=== PATIENT | female | born 1975 | race Caucasian/White ===

== ENCOUNTER 2019-04-03 08:30 | Emergency (ER) | payer OTHER ==
[2019-04-03 08:35] VITALS: BP 120/73; PULSE 110; TEMP 101; BMI 35.9
[2019-04-03] MEDS ORDERED: IBUPROFEN 100 MG/5 ML UNIT DOSE CUPS PO ONE (08:45)
[2019-04-03] MEDS ORDERED: DEXAMETHASONE SOD PHOSPHATE 10 MG/1 ML VIAL IM ONE (08:45)
[2019-04-03] MEDS ORDERED: DEXAMETHASONE SOD PHOSPHATE 10 MG/1 ML VIAL ONE (08:46)
[2019-04-03] MEDS ORDERED: IBUPROFEN 100 MG/5 ML UNIT DOSE CUPS ONE (08:46)
--- NOTE | 2019-04-03 08:51 | PDOC ---
History of Present Illness - General Chief Complaint: Sore Throat Stated Complaint: SORE THROAT Time Seen by Provider: 04/03/19 08:43 History Source: Patient - History of Present Illness Timing/Duration: reports: other Past History - Past Medical History Allergies/Adverse Reactions: Allergies Allergy/AdvReac Type Severity Reaction Status Date / Time No Known Drug Allergies Allergy Verified 04/03/19 08:31 walnuts Allergy Severe anaphylaxis Uncoded 04/03/19 08:31 Home Medications: Ambulatory Orders Acetaminophen [Tylenol .Regular Strength -] 650 mg PO Q6H PRN #0 tablet Ibuprofen Oral Suspension [Motrin Oral Suspension -] 800 mg PO Q6H #140 ml 04/03 Methylprednisolone [Medrol Dose Edwin] 4 mg PO ASDIR #21 tablet 04/03/19 Anemia: Yes COPD: No HTN: No (H/O PRIOR TO BARIATRIC SX.) - Surgical History Abdominal Surgery: Yes Cholecystectomy: Yes Gastric Stapling: Yes (SLEEVE) Orthopedic Surgery: Yes - Psycho Social/Smoking Cessation Hx Smoking Status: Yes Smoking History: Current every day smoker Have you smoked in the past 12 months: Yes Number of Cigarettes Smoked Daily: 6 Information on smoking cessation initiated: No 'Breaking Loose' booklet given: 08/30/15 Hx Alcohol Use: No Drug/Substance Use Hx: No Substance Use Type: None Review of Systems - Review of Systems Constitutional: Yes: Chills, Fever, Malaise HEENTM: Yes: Throat Pain. No: Ear Pain Respiratory: No: Cough *Physical Exam - Vital Signs Last Vital Signs Temp Pulse Resp BP Pulse Ox 101 F H 110 H 20 120/73 98 04/03/19 08:32 04/03/19 08:32 04/03/19 08:32 04/03/19 08:32 04/03/19 08:32 - Physical Exam General Appearance: Yes: Appropriately Dressed, Moderate Distress HEENT: positive: EOMI, Normal Voice, TMs Normal, Tonsillar Exudate (w/ sig b/l tonsillar enlargement, uvula midline), Tonsillar Erythema Neck: positive: Supple. negative: Lymphadenopathy (R), Lymphadenopathy (L) Respiratory/Chest: negative: Respiratory Distress Integumentary: positive: Dry, Warm Neurologic: positive: Fully Oriented, Alert, Normal Mood/Affect Medical Decision Making - Medical Decision Making 04/03/19 09:26 43-year-old female, no significant history, diagnosed with presumed strep yesterday by PMD. no swab taken, and on amoxicillin and has since taken 2 doses but states pain continues and difficult to swallow meds. Not currently taking any pain medication. Reports fever and chills See exam Presumed strep pharyngitis Low-grade fever with significant bilateral tonsillar enlargement with exudates, no evidence of WILD OYSTER HARVESTER -dose of decadron, motrin here -dc w/ medrol dose pack and to continue abx -to discard toothbrush 2 days into taking abx Discharge - Discharge Information Problems reviewed: Yes Clinical Impression/Diagnosis: Strep pharyngitis Condition: Improved Disposition: HOME - Additional Discharge Information Prescriptions: Ibuprofen Oral Suspension [Motrin Oral Suspension -] 800 mg PO Q6H #140 ml Methylprednisolone [Medrol Dose Edwin] 4 mg PO ASDIR #21 tablet - Follow up/Referral - Patient Discharge Instructions Patient Printed Discharge Instructions: Strep Throat Additional Instructions: Take meds as directed and continue antibiotics given to you by your primary care physician If symptoms persistent or gets worse, return to ER - Post Discharge Activity
== END 2019-04-03 09:03 | disposition home or self-care (01) ==
LOC: JERFT 08:30
PROC: 3E0233Z Introduction of Anti-inflammatory into Muscle, Percutaneous Approach (ICD-10-PCS; principal; 2019-04-03)
DX: J02.0 Streptococcal pharyngitis (principal); B95.5 Unspecified streptococcus as the cause of diseases classified elsewhere; Z91.018 Allergy to other foods; Z86.2 Personal history of diseases of the blood and blood-forming organs and certain disorders involving the immune mechanism; Z90.49 Acquired absence of other specified parts of digestive tract; Z98.84 Bariatric surgery status
CPT/HCPCS: 96372; 99284-25; J1100

== ENCOUNTER 2019-10-23 18:01 | Emergency (ER) | payer OTHER ==
[2019-10-23 18:08] VITALS: BMI 34.7
--- NOTE | 2019-10-23 19:22 | PDOC ---
*Physical Exam - Vital Signs Last Vital Signs Temp Pulse Resp BP Pulse Ox 98.3 F 94 H 18 136/79 99 10/23/19 18:04 10/23/19 18:04 10/23/19 18:04 10/23/19 18:04 10/23/19 18:04 Medical Decision Making - Medical Decision Making 10/23/19 19:21 Patient seen by the advanced practice provider under my supervision. Ancillary testing reviewed as necessary. I agree with plan as outlined by the advanced practice provider. Discharge - Discharge Information Problems reviewed: Yes Clinical Impression/Diagnosis: Left hip pain Disposition: HOME - Follow up/Referral Referrals: Ramiro Sotelo MD [Staff Physician] - Isra David [Primary Care Provider] - Call tomorrow (needs PT referral) - Patient Discharge Instructions Patient Printed Discharge Instructions: Help for Hip Pain Additional Instructions: Do light stretches. Take ibuprofen every 6 hours as needed for pain. You may also take Tylenol for pain Follow-up with an orthopedic doctor as soon as possible. You may need physical therapy referral. Return to the emergency room for any worsening symptoms - Post Discharge Activity
--- NOTE | 2019-10-23 19:23 | PDOC ---
History of Present Illness - General Chief Complaint: Pain Stated Complaint: PAIN IN GROIN Time Seen by Provider: 10/23/19 19:18 History Source: Patient - History of Present Illness Initial Comments: 10/23/19 20:36 44-year-old female complaining of left groin pain radiating to the left thigh worse with movement. Denies trauma or injury or fall. Reports that the pain started for the last 3 weeks with no significant relief. Denies abdominal pain, pelvic pain, vaginal discharge, vaginal bleeding, urinary symptoms, flank pain, nausea vomiting or diarrhea Past History - Medical History Allergies/Adverse Reactions: Allergies Allergy/AdvReac Type Severity Reaction Status Date / Time No Known Drug Allergies Allergy Verified 10/23/19 18:04 walnuts Allergy Severe anaphylaxis Uncoded 10/23/19 18:04 Home Medications: Ambulatory Orders Acetaminophen [Tylenol .Regular Strength -] 650 mg PO Q6H PRN #0 tablet 08/31/15 Ibuprofen Oral Suspension [Motrin Oral Suspension -] 800 mg PO Q6H #140 ml 04/03/19 Methylprednisolone [Medrol Dose Edwin] 4 mg PO ASDIR #21 tablet 04/03/19 Anemia: Yes COPD: No HTN: No - Surgical History Abdominal Surgery: Yes Cholecystectomy: Yes Gastric Stapling: Yes (SLEEVE) Orthopedic Surgery: Yes - Reproductive History Is Patient Now?: No - Immunization History Immunization Up to Date: Yes - Psycho-Social/Smoking History Smoking Status: Yes Smoking History: Current every day smoker Have you smoked in the past 12 months: Yes Number of Cigarettes Smoked Daily: 6 Information on smoking cessation initiated: No 'Breaking Loose' booklet given: 08/30/15 - Substance Abuse Hx (Audit-C & DAST Scrn) How often the patient has a drink containing alcohol: Never Score: In Men: 4 or > Positive; In Women: 3 or > Positive: 0 Screen Result (Pos requires Nsg. Audit-10AR): Negative In the last yr the pt used illegal drug/Rx for NonMed reason: No Score: Yes response is considered Positive: 0 Screen Result (Positive result requires Nsg. DAST-10): Negative *Physical Exam - Vital Signs Last Vital Signs Temp Pulse Resp BP Pulse Ox 98.3 F 94 H 18 136/79 99 10/23/19 18:04 10/23/19 18:04 10/23/19 18:04 10/23/19 18:04 10/23/19 18:04 - Physical Exam General Appearance: Yes: Appropriately Dressed Extremity: positive: Other (able to frog leg, tenderness to the left ischiofemoral ligament. no leg shortnening, rotation noted. ) Integumentary: positive: Normal Color, Dry, Warm Neurologic: positive: Fully Oriented, Alert, Normal Mood/Affect Medical Decision Making - Medical Decision Making 10/23/19 21:52 A: left hip pain P: Nsaids XRay ortho follow up Discharge - Discharge Information Problems reviewed: Yes Clinical Impression/Diagnosis: Left hip pain Disposition: HOME - Follow up/Referral Referrals: Isra David [Primary Care Provider] - Call tomorrow (needs PT referral) Ramiro Sotelo MD [Staff Physician] - - Patient Discharge Instructions Patient Printed Discharge Instructions: Help for Hip Pain Additional Instructions: Do light stretches. Take ibuprofen every 6 hours as needed for pain. You may also take Tylenol for pain Follow-up with an orthopedic doctor as soon as possible. You may need physical therapy referral. Return to the emergency room for any worsening symptoms - Post Discharge Activity
[2019-10-23] MEDS ORDERED: KETOROLAC TROMETHAMINE 30 MG/1 ML VIAL IM ONE (19:31)
[2019-10-23] MEDS ORDERED: KETOROLAC TROMETHAMINE 30 MG/1 ML VIAL ONE (19:34)
[2019-10-23 19:50] VITALS: BP 139/85; PULSE 87
[2019-10-23 20:06] VITALS: TEMP 98.5
== END 2019-10-23 20:55 | disposition home or self-care (01) ==
LOC: JER 18:01
PROC: 3E0233Z Introduction of Anti-inflammatory into Muscle, Percutaneous Approach (ICD-10-PCS; principal; 2019-10-23)
DX: M25.552 Pain in left hip (principal)
CPT/HCPCS: 73523-TC-FY; 84703; 99284-25

== ENCOUNTER 2020-08-13 12:08 | Emergency (ER) | payer OTHER ==
[2020-08-13 12:35] VITALS: BP 104/74; PULSE 84; TEMP 98.5; BMI 34.3
[2020-08-13 14:43] LABS: EOS % 2.2 % (0-4.5); HEMOGLOBIN 10.3 GM/dL (10.7-15.3); MEAN PLT VOLUME 8.8 fl (7.5-11.1); WHITE BLOOD COUNT 5.4 K/mm3 (4.0-10.0)
[2020-08-13 14:50] LABS: BASO % 0.9 % (0-2.0); HEMATOCRIT 31.7 % (32.4-45.2); MCH 29.4 pg (25.7-33.7); MCHC 32.5 g/dl (32.0-36.0); MEAN CELL VOLUME 90.6 fl (80-96); MONO % 6.3 % (3.8-10.2); NEUT % 68.6 % (42.8-82.8); PLATELET COUNT 269 10^3/uL (134-434); RDW 12.8 % (11.6-15.6)
[2020-08-13 14:51] LABS: INR 1.01 (0.83-1.09); PROTHROMBIN TIME (PATIENT) 12.4 SEC (9.7-13.0)
[2020-08-13 14:53] LABS: ACTIVATED PTT 28.5 SECONDS (25.2-36.5)
[2020-08-13 14:57] LABS: ALBUMIN 3.1 g/dl (3.4-5.0); BLOOD UREA NITROGEN 7.7 mg/dL (7-18); CALCIUM 8.5 mg/dL (8.5-10.1)
[2020-08-13 15:00] LABS: CREATININE 0.6 mg/dL (0.55-1.3)
[2020-08-13 15:02] LABS: BILIRUBIN,TOTAL 0.4 mg/dL (0.2-1); TOT PROT 6.9 g/dl (6.4-8.2)
[2020-08-13] MEDS ORDERED: MECLIZINE HCL 25 MG TABLET (FP) PO ONE (15:09)
[2020-08-13] MEDS ORDERED: MECLIZINE HCL 25 MG TABLET (FP) ONE (15:25)
== END 2020-08-13 17:00 | disposition home or self-care (01) ==
LOC: JER 12:08
DX: R42 Dizziness and giddiness (principal)
CPT/HCPCS: 36415; 80053; 83735; 84703; 85025; 85610; 85730; 86850; 86900; 86901; 93005; 93010; 99285-25

== ENCOUNTER 2020-09-27 09:05 | Day surgery (SDC) | payer OTHER ==
[2020-09-27] MEDS ORDERED: FERRIC CARBOXYMALTOSE 750 MG in SODIUM CHLORIDE 250 ML IVPB SCH (09:30)
[2020-09-27 11:35] VITALS: BP 139/68; PULSE 78; TEMP 98.5
== END 2020-09-27 11:00 | disposition home or self-care (01) ==
LOC: FINFUSION 09:05 → FM/S 09:08 → FINFUSION 11:00
PROVIDERS: ATTEND Family Medicine
PROC: 3E033GC Introduction of Other Therapeutic Substance into Peripheral Vein, Percutaneous Approach (ICD-10-PCS; principal; 2020-09-27)
DX: D50.9 Iron deficiency anemia, unspecified (principal)
CPT/HCPCS: 96365; J1439

== ENCOUNTER 2020-10-15 15:44 | Day surgery (SDC) | payer OTHER ==
[2020-10-15] MEDS ORDERED: FERRIC CARBOXYMALTOSE 750 MG in SODIUM CHLORIDE 250 ML IVPB ONE (16:30)
[2020-10-15 16:44] VITALS: TEMP 98
[2020-10-15 17:18] VITALS: BP 102/62; PULSE 72
== END 2020-10-15 17:21 | disposition home or self-care (01) ==
LOC: FINFUSION 15:44 → FM/S 15:53 → FINFUSION 17:21
PROVIDERS: ATTEND Family Medicine
PROC: 3E033GC Introduction of Other Therapeutic Substance into Peripheral Vein, Percutaneous Approach (ICD-10-PCS; principal; 2020-10-15)
DX: D50.9 Iron deficiency anemia, unspecified (principal)
CPT/HCPCS: 96365; J1439

== ENCOUNTER 2021-03-23 08:15 | Day surgery (SDC) | payer OTHER ==
[2021-03-23] MEDS ORDERED: FERRIC CARBOXYMALTOSE 750 MG in SODIUM CHLORIDE 250 ML IVPB ONE (09:00)
[2021-03-23 10:04] VITALS: BP 105/65; PULSE 80; TEMP 98
== END 2021-03-23 09:50 | disposition home or self-care (01) ==
LOC: FINFUSION 08:15 → FM/S 08:17 → FINFUSION 09:50
PROVIDERS: ATTEND Family Medicine
PROC: 3E033GC Introduction of Other Therapeutic Substance into Peripheral Vein, Percutaneous Approach (ICD-10-PCS; principal; 2021-03-23)
DX: D50.9 Iron deficiency anemia, unspecified (principal)
CPT/HCPCS: 81025; 96365; J1439

== ENCOUNTER 2021-03-24 05:53 | Emergency (ER) | payer OTHER ==
[2021-03-24 06:01] VITALS: BMI 36.0
[2021-03-24] MEDS ORDERED: SODIUM CHLORIDE 0.9% 500 ML INFUS.BAG IV ONE (06:08)
[2021-03-24] MEDS ORDERED: ACETAMINOPHEN 1000 MG/100 ML BAG IVPB ONE (06:08)
[2021-03-24] MEDS ORDERED: ACETAMINOPHEN INJECTION 100 ML IVPB ONE (06:09)
[2021-03-24 06:34] LABS: HEMATOCRIT 31.8 % (32.4-45.2); HEMOGLOBIN 10.1 GM/dL (10.7-15.3); MCH 27.3 pg (25.7-33.7); MCHC 31.7 g/dl (32.0-36.0); MEAN CELL VOLUME 86.2 fl (80-96); MEAN PLT VOLUME 9.4 fl (7.5-11.1); PLATELET COUNT 264 10^3/uL (134-434); RBC 3.68 M/mm3 (3.60-5.2); RDW 13.5 % (11.6-15.6); WHITE BLOOD COUNT 7.2 K/mm3 (4.0-10.0)
[2021-03-24 06:38] LABS: CHLORIDE 109 mmol/L (98-107); SODIUM 142 mmol/L (136-145)
[2021-03-24 06:40] LABS: CALCIUM 8.7 mg/dL (8.5-10.1)
[2021-03-24 06:41] LABS: ANION GAP 6 MMOL/L (8-16); BLOOD UREA NITROGEN 9.6 mg/dL (7-18); CO2 26 mmol/L (21-32); GLUCOSE,RANDOM 97 mg/dL (74-106)
[2021-03-24 06:44] LABS: CREATININE 0.6 mg/dL (0.55-1.3); SGOT/AST 13 U/L (15-37); SGPT/ALT 14 U/L (13-61)
[2021-03-24 06:45] LABS: BILIRUBIN,TOTAL 0.4 mg/dL (0.2-1)
[2021-03-24 06:46] LABS: EPI CELLS 8 /uL (0-25.1); HYALINE CASTS 0 /uL (0-3.1); TOT PROT 6.8 g/dl (6.4-8.2); URINE APPEARANCE TURBID; URINE BILIRUBIN 2+ (NEGATIVE); URINE COLOR RED; URINE GLUCOSE (UA) NEGATIVE (NEGATIVE); URINE KETONE NEGATIVE (NEGATIVE); URINE LEUK ESTERASE 3+ (NEGATIVE); URINE NITRITE POSITIVE (NEGATIVE); URINE PROTEIN 2+ (NEGATIVE); URINE UROBILINOGEN 0.2 mg/dL (0.2-1.0); URINE WBC 1 /uL (0-25.8)
[2021-03-24 06:47] LABS: ALK PHOS 72 U/L (45-117)
[2021-03-24] MEDS ORDERED: CEPHALEXIN MONOHYDRATE 500 MG CAPSULE (UD) PO ONE (07:13)
[2021-03-24 07:18] LABS: URINE RBC >1000 /uL (0-23.9)
[2021-03-24 07:19] LABS: URINE BACTERIA 0 /uL (0-1359)
[2021-03-24] MEDS ORDERED: ONDANSETRON 4 MG TABLET PO ONE (07:33)
[2021-03-24] MEDS ORDERED: CEPHALEXIN MONOHYDRATE 500 MG CAPSULE (UD) ONE (07:35)
[2021-03-24] MEDS ORDERED: ONDANSETRON *ODT* 4 MG TABLET ONE (07:51)
[2021-03-24] MEDS ORDERED: KETOROLAC TROMETHAMINE 15 MG/ML VIAL IVPUSH ONE (09:09)
[2021-03-24] MEDS ORDERED: KETOROLAC TROMETHAMINE 15 MG/ML VIAL ONE (09:11)
[2021-03-24 11:12] VITALS: BP 100/54; PULSE 75; TEMP 97.6
== END 2021-03-24 11:12 | disposition home or self-care (01) ==
LOC: JER 05:53
PROC: 3E0333Z Introduction of Anti-inflammatory into Peripheral Vein, Percutaneous Approach (ICD-10-PCS; principal; 2021-03-24)
PROC: 3E0333Z Introduction of Anti-inflammatory into Peripheral Vein, Percutaneous Approach (ICD-10-PCS; 2021-03-24)
DX: N83.299 Other ovarian cyst, unspecified side (principal)
CPT/HCPCS: 76830-TC; 80053; 81003; 84484; 84703; 85027; 96374; 96375; 99284-25; J0131

== ENCOUNTER 2021-03-30 17:16 | Day surgery (SDC) | payer OTHER ==
[2021-03-30] MEDS ORDERED: FERRIC CARBOXYMALTOSE 750 MG in SODIUM CHLORIDE 250 ML IVPB ONE (18:30)
[2021-03-30 19:19] VITALS: BP 116/62; PULSE 66; TEMP 98
== END 2021-03-30 19:23 | disposition home or self-care (01) ==
LOC: FINFUSION 17:16 → FM/S 17:19 → FINFUSION 19:23
PROVIDERS: ATTEND Family Medicine
PROC: 3E033GC Introduction of Other Therapeutic Substance into Peripheral Vein, Percutaneous Approach (ICD-10-PCS; principal; 2021-03-30)
DX: D50.9 Iron deficiency anemia, unspecified (principal)
CPT/HCPCS: 81025; 96365; J1439

== ENCOUNTER 2021-06-05 21:16 | Emergency (ER) | payer OTHER ==
[2021-06-05 21:31] VITALS: BMI 35.9
[2021-06-05] MEDS ORDERED: ONDANSETRON 4 MG/2 ML VIAL IVPB ONE (22:18)
[2021-06-05] MEDS ORDERED: SODIUM CHLORIDE 1,000 ML IV ONE (22:18)
[2021-06-05] MEDS ORDERED: ACETAMINOPHEN 1000 MG/100 ML BAG IVPB ONE (22:18)
[2021-06-05] MEDS ORDERED: ACETAMINOPHEN INJECTION 100 ML IVPB ONE (22:40)
[2021-06-05] MEDS ORDERED: ONDANSETRON 4 MG/2 ML VIAL ONE (22:40)
[2021-06-05 23:01] LABS: BASO % 0.4 % (0-2.0); HEMATOCRIT 35.3 % (32.4-45.2); HEMOGLOBIN 12.2 GM/dL (10.7-15.3); LYMPH % 6.8 % (8-40); MCH 31.7 pg (25.7-33.7); MCHC 34.4 g/dl (32.0-36.0); MEAN CELL VOLUME 91.9 fl (80-96); MEAN PLT VOLUME 8.7 fl (7.5-11.1); MONO % 4.4 % (3.8-10.2); NEUT % 87.4 % (42.8-82.8); PLATELET COUNT 202 10^3/uL (134-434); RBC 3.84 M/mm3 (3.60-5.2); WHITE BLOOD COUNT 10.5 K/mm3 (4.0-10.0)
[2021-06-05 23:13] LABS: ALBUMIN 3.1 g/dl (3.4-5.0); CALCIUM 8.7 mg/dL (8.5-10.1)
[2021-06-05 23:14] LABS: BLOOD UREA NITROGEN 8.1 mg/dL (7-18)
[2021-06-05 23:16] LABS: CREATININE 0.7 mg/dL (0.55-1.3)
[2021-06-05 23:18] LABS: TOT PROT 6.9 g/dl (6.4-8.2)
[2021-06-05 23:45] LABS: BILIRUBIN,TOTAL 0.7 mg/dL (0.2-1)
[2021-06-06 01:35] VITALS: BP 112/60; PULSE 69; TEMP 97.7
== END 2021-06-06 02:20 | disposition home or self-care (01) ==
LOC: JER 21:16
PROC: 3E033GC Introduction of Other Therapeutic Substance into Peripheral Vein, Percutaneous Approach (ICD-10-PCS; principal; 2021-06-05)
DX: N83.201 Unspecified ovarian cyst, right side (principal)
CPT/HCPCS: 36415; 76830-TC; 80053; 84703; 85025; 96361; 96374; 96375; 99284-25

== ENCOUNTER 2024-03-03 00:48 | Emergency (ER) | payer OTHER ==
[2024-03-03 00:59] VITALS: BP 113/64; PULSE 80; RESP 18; TEMP 97.7; BMI 37.8
[2024-03-03] MEDS ORDERED: ALBUTEROL SO4 2.5/IPRATROPIUM 0.5 INH SOL 3 ML VIAL.NEB. NEB ONE (02:14)
[2024-03-03] MEDS: ALBUTEROL SO4 2.5/IPRATROPIUM 0.5 INH SOL 3 ML VIAL.NEB. NEB ONE (02:20)
== END 2024-03-03 03:32 | disposition home or self-care (01) ==
LOC: JER 00:48
PROC: 3E0F7GC Introduction of Other Therapeutic Substance into Respiratory Tract, Via Natural or Artificial Opening (ICD-10-PCS; principal; 2024-03-03)
DX: U07.1 COVID-19 (principal); R05.9 Cough, unspecified
CPT/HCPCS: 0241U-QW; 71046-TC-FY; 87651; 99284-25